=== PATIENT | male | born 1985 | race African-American/Black ===

== ENCOUNTER 2018-03-11 12:10 | Emergency (ER) | payer SELFPAY ==
[2018-03-11] MEDS ORDERED: ONDANSETRON HCL INJ/PF 4 MG/2 ML SDV IV ONE (13:12)
[2018-03-11] MEDS ORDERED: FAMOTIDINE INJ/PF 20 MG/2 ML SDV IV ONE (13:12)
[2018-03-11] MEDS ORDERED: RINGERS SOLUTION,LACTATED 1,000 ML IV ONE (13:12)
[2018-03-11] MEDS ORDERED: KETOROLAC TROMETHAMINE INJ/PF 30 MG/1 ML SDV IV ONE (13:15)
--- NOTE | 2018-03-11 13:15 | ER Document Report ---
ED General - General Chief Complaint: Nausea/Vomiting Stated Complaint: GENERAL WEAKNESS Time Seen by Provider: 03/11/18 12:51 Mode of Arrival: Medic Information source: Patient, Emergency Med Personnel, [facility] Records Notes: 33-year-old male with colitis, chronic anemia presents with complaint of nausea , vomiting and body aches that started 3 days prior to arrival. Patient states that he has had approximately 2 episodes of vomiting per day. He denies any blood. Patient has diffuse body aches. He has a intermittent nonproductive cough. He does have sick contacts at home with similar symptoms. Patient denies recent travel, recent antibiotic use. TRAVEL OUTSIDE OF THE [place] IN LAST 30 DAYS: No - HPI Onset: Other Onset/Duration: Gradual, Persistent Quality of pain: Achy Severity: Mild Associated symptoms: Chills, Nausea, Vomiting Exacerbated by: Food Relieved by: Denies Similar symptoms previously: Yes Recently seen / treated by doctor: Yes Past Medical History - General Information source: Patient, [facility] Records - Social History Smoking Status: Never Smoker Chew tobacco use (# tins/day): No Frequency of alcohol use: None Drug Abuse: None Lives with: Family Family History: Reviewed & Not Pertinent Patient has suicidal ideation: No Patient has homicidal ideation: No Renal/ Medical History: Denies: Hx Peritoneal Dialysis GI Medical History: Reports: Other - Colitis Review of Systems - Review of Systems Notes: REVIEW OF SYSTEMS: CONSTITUTIONAL : Denies fever, chills, or sweats. Denies recent illness. Denies weight loss, recent hospitalizations. EENT: Denies visual changes, eye pain. Denies sore throat, oral lesions, difficulty swallowing. CARDIOVASCULAR: Denies chest pain. Denies palpitations. Denies lower extremity edema. RESPIRATORY: Denies cough. Denies shortness of breath, wheezing. GASTROINTESTINAL: Denies abdominal pain or distention. Denies diarrhea. Denies blood in vomitus, stools, or per rectum. Denies black, tarry stools. Denies constipation. GENITOURINARY: Denies difficulty urinating, painful urination, frequency, blood in urine, testicular pain or penile discharge. MUSCULOSKELETAL: Denies neck pain or stiffness. Denies joint swelling. SKIN: Denies rash, lesions or sores. HEMATOLOGIC : Denies easy bruising or bleeding. LYMPHATIC: Denies swollen glands. NEUROLOGICAL: Denies confusion or altered mental status. Denies loss of consciousness. Denies dizziness or lightheadedness. Denies headache. Denies weakness or paralysis. Denies problems difficulty with ambulation, slurred speech. Denies sensory loss, numbness, or tingling. Denies seizures. PSYCHIATRIC: Denies anxiety or stress. Denies depression, suicidal ideation, or Physical Exam - Vital signs Vitals: Temp Pulse BP Pulse Ox 98.5 F 91 133/79 H 100 03/11/18 15:33 03/11/18 15:33 03/11/18 15:33 03/11/18 15:33 Interpretation: No: Febrile - Notes Notes: PHYSICAL EXAMINATION: GENERAL: Well-appearing, well-nourished and in no acute distress. HEAD: Atraumatic, normocephalic. EYES: Pupils equal round and reactive to light, extraocular movements intact, sclera anicteric, conjunctiva are normal. ENT: Nares patent, oropharynx clear without exudates. Moist mucous membranes. NECK: Normal range of motion, supple without lymphadenopathy LUNGS: Breath sounds clear to auscultation bilaterally and equal. No wheezes rales or rhonchi. HEART: Regular rate and rhythm without murmurs ABDOMEN: Soft, nontender, nondistended abdomen. No guarding, no rebound. No masses appreciated. Musculoskeletal: Normal range of motion, no pitting or edema. No cyanosis. NEUROLOGICAL: Cranial nerves grossly intact. Normal speech, normal gait. Normal sensory, motor exams PSYCH: Normal mood, normal affect. SKIN: Warm, Dry, normal turgor, no rashes or lesions noted. Course - Re-evaluation Re-evalutation: Laboratory 03/11/18 03/11/18 03/11/18 13:30 13:30 14:01 WBC 6.4 RBC 6.13 H Hgb 13.7 Hct 41.6 MCV 68 L MCH 22.4 L MCHC 33.0 RDW 24.1 H Plt Count 315 Seg Neutrophils % 75.7 Lymphocytes % 11.2 L Monocytes % 12.4 Eosinophils % 0.4 Basophils % 0.3 Absolute Neutrophils 4.8 Absolute Lymphocytes 0.7 Absolute Monocytes 0.8 Absolute Eosinophils 0.0 Absolute Basophils 0.0 Large Platelets PRESENT Platelet Comment ADEQUATE Hypochromasia 1+ Poikilocytosis SLIGHT Anisocytosis 3+ Microcytosis 2+ Ovalocytes SLIGHT Sodium 137.1 Potassium 4.6 Chloride 101 Carbon Dioxide 23 Anion Gap 13 BUN 13 Creatinine 0.95 Est GFR ( Amer) > 60 Est GFR (Non-Af Amer) > 60 Glucose 102 Calcium 10.2 Total Bilirubin 0.5 Direct Bilirubin 0.4 Neonat Total Bilirubin Not Reportable Neonat Direct Bilirubin Not Reportable Neonat Indirect Bili Not Reportable AST 32 ALT 48 Alkaline Phosphatase 179 H Total Protein 8.6 H Albumin 3.9 Lipase 39.7 Urine Color YELLOW Urine Appearance CLOUDY Urine pH 5.0 Ur Specific [place] 1.023 Urine Protein 100 H Urine Glucose (UA) NEGATIVE Urine Ketones NEGATIVE Urine Blood NEGATIVE Urine Nitrite NEGATIVE Urine Bilirubin SMALL H Urine Urobilinogen NEGATIVE Ur Leukocyte Esterase NEGATIVE Urine RBC 1-5 Urine WBC 10-20 Ur Squamous Epith Cells MODERATE Urine Bacteria 2+ Hyaline Casts 20-30 Granular Casts 1-5 WBC Casts 5-10 Urine Mucus 2+ Urine Ascorbic Acid NEGATIVE Presentation of an overall well-appearing patient in no acute distress with complaints of nausea, vomiting. This is consistent with likely viral gastroenteritis. Patient has no abdominal tenderness on exam and specifically no tenderness in the RLQ, LLQ, RUQ. Overall well hydrated on exam. Able to tolerate oral intake here in the emergency department. Low clinical suspicion for any acute life-threatening etiology based on exam and history including acute cholecystitis, SBO, appendicitis, nephrolithiasis, or pylonephritis, pancreatitis. CMP without evidence of acute hepatitis or significant dehydration. 03/11/18 15:11 Patient reevaluated and states he is feeling better. His nausea has resolved. He has been able to tolerate fluids. Patient was evaluated and treated as appropriate for the patient's presenting symptoms and complaint, with consideration of any critical or life threatening conditions that may be associated with their obtained history and exam as noted above. All results were discussed with patient. Patient provided the opportunity to ask questions, and express concerns. Patient was educated on treatments based on their presumed diagnosis as noted above. At this time we will discharge the patient with return precautions and follow-up recommendations. Verbal discharge instructions given a the bedside. Medication warnings reviewed. Patient is in agreement with this plan and has verbalized understanding of return precautions. After careful consideration I feel that that patient can be safely discharged from the emergency department, they were advised to followup with a primary care physician in 2-3 days. Dictation on this chart was performed using voice recognition software and may result in unintended grammatical, spelling, syntax or errors. 03/11/18 21:14 03/11/18 21:15 03/11/18 21:17 03/11/18 21:18 . - Vital Signs Vital signs: Temp Pulse Resp BP Pulse Ox 98.5 F 91 133/79 H 100 03/11/18 15:33 03/11/18 15:33 03/11/18 15:33 03/11/18 15:33 - Laboratory Result Diagrams: 03/11/18 13:30 03/11/18 13:30 Laboratory results interpreted by me: 03/11/18 03/11/18 03/11/18 13:30 13:30 14:01 RBC 6.13 H MCV 68 L MCH 22.4 L RDW 24.1 H Lymphocytes % 11.2 L Alkaline Phosphatase 179 H Total Protein 8.6 H Urine Protein 100 H Urine Bilirubin SMALL H Discharge - Discharge Clinical Impression: Myalgia, Viral illness, History of colitis Nausea & vomiting Qualifiers: Vomiting type: unspecified Vomiting Intractability: non-intractable Qualified Code(s): R11.2 - Nausea with vomiting, unspecified Condition: Good Disposition: HOME, SELF-CARE Instructions: Antinausea Medication ([facility]), Intravenous (IV) Fluids ([facility]), Viral Syndrome ([facility]), Vomiting ([facility]) Additional Instructions: Recommendations: Take medicine as prescribed for nausea and vomiting. Drink small amounts of fluid often, advance diet slowly. Return to the emergency room for worsening vomiting, inability to tolerate fluids, feeling faint, or concerns it or getting worse. Follow-up with your physician within the next two days. If you are unable to get inn to see your physician, return to the ER for evaulation. You have been seen in the Emergency Department (ED) today for nausea and vomiting. Your work up today has not shown a clear cause for your symptoms. You have been prescribed Zofran; please use as prescribed as needed for your nausea. Follow up with your doctor as soon as possible regarding today's emergent visit and your symptoms of nausea. Return to the Emergency Department (ED) if you develop abdominal pain, bloody vomiting, bloody diarrhea, if you are unable to tolerate fluids due to vomiting , or if you develop other symptoms that concern you. Prescriptions: Famotidine [Pepcid 40 mg Tablet] 40 mg PO DAILY #14 tablet Forms: Elevated Blood Pressure
[2018-03-11 14:04] LABS: ABSOLUTE LYMPHOCYTES (AUTO) 0.7 10^3/uL (0.5-4.7); ABSOLUTE MONOCYTES (AUTO) 0.8 10^3/uL (0.1-1.4); ABSOLUTE NEUT (AUTO) 4.8 10^3/uL (1.7-8.2); BASOPHILS % (AUTO) 0.3 % (0-2); EOSINOPHILS % (AUTO) 0.4 % (0-6); HEMATOCRIT 41.6 % (37.9-51.0); HEMOGLOBIN 13.7 g/dL (13.5-17.0); LYMPHOCYTES % (AUTO) 11.2 % (13-45); MEAN CORPUSCULAR HEMOGLOBIN 22.4 pg (27.0-33.4); MEAN CORPUSCULAR VOLUME 68 fl (80-97); MONOCYTES % (AUTO) 12.4 % (3-13); PLATELET COUNT 315 10^3/uL (150-450); RED BLOOD COUNT 6.13 10^6/uL (4.35-5.55); RED CELL DISTRIBUTION WIDTH 24.1 % (11.5-14.0); SEGMENTED NEUTROPHILS % (AUTO) 75.7 % (42-78); TOTAL CELLS COUNTED % (AUTO) 100 %; WHITE BLOOD COUNT 6.4 10^3/uL (4.0-10.5)
[2018-03-11 14:21] LABS: ALANINE AMINOTRANSFERASE 48 U/L (21-72); ALBUMIN 3.9 g/dL (3.5-5.0); ALKALINE PHOSPHATASE 179 U/L (38-126); ANION GAP 13 (5-19); ASPARTATE AMINO TRANSFERASE 32 U/L (17-59); BILIRUBIN,DIRECT 0.4 mg/dL (0.0-0.4); BILIRUBIN,TOTAL 0.5 mg/dL (0.2-1.3); BLOOD UREA NITROGEN 13 mg/dL (7-20); CALCIUM 10.2 mg/dL (8.4-10.2); CARBON DIOXIDE 23 mmol/L (22-30); CHLORIDE 101 mmol/L (98-107); GLUCOSE 102 mg/dL (75-110); LIPASE 39.7 U/L (23-300); POTASSIUM 4.6 mmol/L (3.6-5.0); SODIUM 137.1 mmol/L (137-145); TOTAL PROTEIN 8.6 g/dL (6.3-8.2)
[2018-03-11 14:22] LABS: ANISOCYTOSIS 3+
[2018-03-11 14:23] LABS: HYPOCHROMASIA 1+; OVALOCYTES SLIGHT; PLATELET COMMENT ADEQUATE; PLATELET LARGE PRESENT; POIKILOCYTOSIS SLIGHT
[2018-03-11 14:27] LABS: APPEARANCE,URINE CLOUDY; BILIRUBIN,URINE SMALL (NEGATIVE); GLUCOSE, URINE NEGATIVE (NEGATIVE); KETONES,URINE NEGATIVE (NEGATIVE); LEUKOCYTE ESTERASE,URINE NEGATIVE (NEGATIVE); NITRITE,URINE NEGATIVE (NEGATIVE); PROTEIN,URINE 100 mg/dL (NEGATIVE); URINE SPECIFIC GRAVITY 1.023; UROBILINOGEN,URINE NEGATIVE mg/dL (<2.0)
[2018-03-11] MEDS ORDERED: ONDANSETRON HCL INJ/PF 4 MG/2 ML SDV ONE (14:39)
[2018-03-11 14:43] LABS: ADD MANUAL MICROSCOPIC YES
[2018-03-11 14:44] LABS: COLOR,URINE YELLOW
[2018-03-11 14:54] LABS: BACTERIA,URINE 2+ /HPF
[2018-03-11 14:56] LABS: HYALINE CASTS, URINE 20-30 /LPF
[2018-03-11] MEDS ORDERED: ONDANSETRON ODT 4 MG TAB (6 TAB/ER DISP) PO PRN (15:16)
[2018-03-11 15:33] VITALS: BP 133/79
== END 2018-03-11 15:44 | disposition home or self-care (01) ==
LOC: ER 12:10
DX: B34.9 Viral infection, unspecified (principal); R11.2 Nausea with vomiting, unspecified; M79.10 Myalgia, unspecified site; R68.83 Chills (without fever); Z87.19 Personal history of other diseases of the digestive system; R05 Cough
CPT/HCPCS: 99284; 96361; 96374; 96375; 36415; 83690; 85025; 80053; 81001; J1885; J2405; J7120; S0028

== ENCOUNTER 2018-03-12 15:11 | Emergency (ER) | payer SELFPAY ==
[2018-03-12] MEDS ORDERED: NORMAL SALINE 1000 ML 1,000 ML IV ONE (15:36)
--- NOTE | 2018-03-12 15:38 | ER Document Report ---
ED Medical Screen (RME) - General Chief Complaint: Lower Abdominal Pain Stated Complaint: ABDOMINAL PAIN Time Seen by Provider: 03/12/18 15:33 Notes: 33 years old male with a history of ulcerative colitis, was on Humira, could not afford it and not been treated recently. Presents today with abdominal pain and bloody stools. General weakness. Appears cachectic, conjunctiva pale, carrying bloody stool with him. TRAVEL OUTSIDE OF THE [place] IN LAST 30 DAYS: No - Related Data Allergies/Adverse Reactions: No Known Allergies Allergy (Verified 03/12/18 15:12) Past Medical History Renal/ Medical History: Denies: Hx Peritoneal Dialysis Physical Exam - Vital signs Vitals: Temp Pulse Resp BP Pulse Ox 98.0 F 99 20 130/85 H 97 03/12/18 15:15 03/12/18 15:15 03/12/18 15:15 03/12/18 15:15 03/12/18 15:15 Course - Vital Signs Vital signs: Temp Pulse Resp BP Pulse Ox 98.0 F 99 20 130/85 H 97 03/12/18 15:15 03/12/18 15:15 03/12/18 15:15 03/12/18 15:15 03/12/18 15:15
[2018-03-12] MEDS ORDERED: METHYLPREDNISOLONE INJ 125 MG/2 ML SDV IV ONE (16:12)
[2018-03-12] MEDS ORDERED: FAMOTIDINE INJ/PF 20 MG/2 ML SDV IV ONE (16:13)
[2018-03-12] MEDS ORDERED: HYDROCORTISONE ACETATE 25 MG SUPP.RECT PR ONE (16:13)
--- NOTE | 2018-03-12 16:17 | RADIOLOGY REPORT (SQ) ---
EXAM DESCRIPTION: ACUTE ABDOMEN SERIES COMPLETED DATE/TIME: 03/12/2018 3:55 pm REASON FOR STUDY: Abdominal pain COMPARISON: None. NUMBER OF VIEWS: Three views. TECHNIQUE: Frontal chest, supine abdomen and upright abdomen radiographic images acquired. LIMITATIONS: None. FINDINGS: CHEST: Lungs clear of infiltrates. FREE AIR: None. No abnormal gas collections. BOWEL GAS PATTERN: Paucity of bowel gas. Stomach distended with fluid. CALCIFICATIONS: No suspicious calcifications. HARDWARE: None in the abdomen. SOFT TISSUES: No gross mass or suggestion of organomegaly. BONES: No acute fracture. No worrisome bone lesions. OTHER: No other significant finding. IMPRESSION: Paucity of bowel gas. Stomach distended with fluid. No acute pulmonary infiltrates. TECHNICAL DOCUMENTATION: JOB ID: [id number] [employer]- All Rights Reserved Reading location - IP/workstation name: [email or web address]
[2018-03-12] MEDS ORDERED: METOCLOPRAMIDE HCL INJ/PF 10 MG/2 ML SDV IV ONE (16:38)
[2018-03-12] MEDS ORDERED: FENTANYL CITRATE INJ/PF 100 MCG/2 ML AMPUL IV ONE (16:38)
--- NOTE | 2018-03-12 16:46 | ER Document Report ---
ED General - General Chief Complaint: Lower Abdominal Pain Stated Complaint: ABDOMINAL PAIN Time Seen by Provider: 03/12/18 15:33 Mode of Arrival: Ambulatory Information source: Patient, [facility] Records Notes: 33-year-old male with ulcerative colitis presents for the second time in 2 days with complaint of abdominal cramping, diarrhea and bright red blood per rectum. Patient was on Humira but after a loss of insurance has not been able to afford it. He currently has no primary care physician. He denies any fever, chills. He was seen by myself yesterday for nausea, vomiting which she says has improved. TRAVEL OUTSIDE OF THE [place] IN LAST 30 DAYS: No - HPI Onset: Other Onset/Duration: Gradual, Persistent Quality of pain: Cramping Severity: Mild Associated symptoms: Diarrhea, Nausea. denies: Chest pain, Fever, Vomiting Exacerbated by: Food Relieved by: Denies Similar symptoms previously: Yes Recently seen / treated by doctor: Yes - Related Data Allergies/Adverse Reactions: No Known Allergies Allergy (Verified 03/12/18 15:12) Past Medical History - General Information source: Patient, [facility] Records - Social History Smoking Status: Never Smoker Frequency of alcohol use: None Drug Abuse: None Lives with: Family Family History: Reviewed & Not Pertinent Patient has suicidal ideation: No Patient has homicidal ideation: No Renal/ Medical History: Denies: Hx Peritoneal Dialysis GI Medical History: Reports: Hx Ulcerative Colitis Review of Systems - Review of Systems Notes: REVIEW OF SYSTEMS: CONSTITUTIONAL : Denies fever, chills, or sweats. Denies recent illness. Denies weight loss, recent hospitalizations. EENT: Denies visual changes, eye pain. Denies sore throat, oral lesions, difficulty swallowing. CARDIOVASCULAR: Denies chest pain. Denies palpitations. Denies lower extremity edema. RESPIRATORY: Denies cough. Denies shortness of breath, wheezing. GASTROINTESTINAL: Denies abdominal distention. Denies blood in vomitus, or per rectum. Denies black, tarry stools. Denies constipation. GENITOURINARY: Denies difficulty urinating, painful urination, frequency, blood in urine, testicular pain or penile discharge. MUSCULOSKELETAL: Denies back or neck pain or stiffness. Denies joint pain or swelling. SKIN: Denies rash, lesions or sores. HEMATOLOGIC : Denies easy bruising or bleeding. LYMPHATIC: Denies swollen glands. NEUROLOGICAL: Denies confusion or altered mental status. Denies loss of consciousness. Denies dizziness or lightheadedness. Denies headache. Denies weakness or paralysis. Denies problems difficulty with ambulation, slurred speech. Denies sensory loss, numbness, or tingling. Denies seizures. PSYCHIATRIC: Denies anxiety or stress. Denies depression, suicidal ideation, or Physical Exam - Vital signs Vitals: Temp Pulse Resp BP Pulse Ox 98.0 F 99 20 130/85 H 97 03/12/18 15:15 03/12/18 15:15 03/12/18 15:15 03/12/18 15:15 03/12/18 15:15 Interpretation: Hypertensive - Notes Notes: PHYSICAL EXAMINATION: GENERAL: Thin, no acute distress. HEAD: Atraumatic, normocephalic. EYES: Pupils equal round and reactive to light, extraocular movements intact, sclera anicteric, conjunctiva are normal. ENT: Nares patent, oropharynx clear without exudates. Moist mucous membranes. NECK: Normal range of motion, supple without lymphadenopathy LUNGS: Breath sounds clear to auscultation bilaterally and equal. No wheezes rales or rhonchi. HEART: Regular rate and rhythm without murmurs ABDOMEN: Soft, nontender, nondistended abdomen. No guarding, no rebound. No masses appreciated. Rectal: No active bleeding, bright red blood noted. Musculoskeletal: Normal range of motion, no pitting or edema. No cyanosis. NEUROLOGICAL: Cranial nerves grossly intact. Normal speech, normal gait. Normal sensory, motor exams PSYCH: Normal mood, normal affect. SKIN: Warm, Dry, normal turgor, no rashes or lesions noted. Course - Re-evaluation Re-evalutation: Laboratory 03/12/18 03/12/18 03/12/18 16:18 16:18 16:36 WBC 7.9 RBC 6.65 H Hgb 14.7 Hct 45.3 MCV 68 L MCH 22.1 L MCHC 32.4 RDW 24.6 H Plt Count 345 Seg Neutrophils % 68.7 Lymphocytes % 14.7 Monocytes % 15.1 H Eosinophils % 1.1 Basophils % 0.4 Absolute Neutrophils 5.4 Absolute Lymphocytes 1.2 Absolute Monocytes 1.2 Absolute Eosinophils 0.1 Absolute Basophils 0.0 Platelet Comment ADEQUATE Anisocytosis 1+ Microcytosis 2+ Target Cells SLIGHT Ovalocytes SLIGHT Sodium 136.1 L Potassium 4.1 Chloride 95 L Carbon Dioxide 28 Anion Gap 13 BUN 15 Creatinine 0.96 Est GFR ( Amer) > 60 Est GFR (Non-Af Amer) > 60 Glucose 110 Calcium 10.3 H Total Bilirubin 0.4 Direct Bilirubin 0.3 Neonat Total Bilirubin Not Reportable Neonat Direct Bilirubin Not Reportable Neonat Indirect Bili Not Reportable AST 20 ALT 39 Alkaline Phosphatase 176 H Total Protein 8.7 H Albumin 4.0 Lipase 52.3 Stool Occult Blood POSITIVE 33-year-old male with ulcerative colitis presents with bloody stools that started today. Was seen yesterday for nausea and vomiting and abdominal cramping which he states has improved. Patient was not having bloody diarrhea yesterday. Patient has been off of his Humira since losing his insurance. He has not attempted to enroll in medication assistance program. He does not currently have a primary care physician. Reviewed Humira and similar medications on good Rx and the cheapest medication with a disc count is $215 for mesalamine. I did print out this coupon for the patient and I did prescribe this for him. Other alternatives are at least $1500 which the patient cannot currently afford. Unfortunately there are no affordable alternatives to his Humira that I can find at this time. I also placed a social work consult for the patient. He did receive Anusol rectally, steroids, mesalamine, Reglan, fentanyl. Vital signs stable upon arrival. Patient does not appear toxic although he is very thin. No focal abdominal tenderness. No active vomiting. He is not tachycardic, hypotensive. 03/12/18 16:52 Discussed medication assistance that is available for the patient. He states that he is aware of this but has not signed up at this time. Patient currently has no insurance, no primary care physician. 03/12/18 17:21 Patient reevaluated and states that his abdominal pain has improved. He was able to tolerate the suppository. He is asking to eat. CBC shows a hemoglobin of 14 which is better than it was yesterday. CMP shows no signal or evidence of dehydration. Stool occult is positive which is not surprising. I spoke to the patient at length regarding our options. Discussed that he should attempt to sign up for medication assistance. Patient given a turkey dinner for Thanksgiving which he tolerated. 03/12/18 17:37 Patient reevaluated. He is tolerating food. He denies nausea, vomiting, abdominal pain. Patient discharged home with a prescription for mesalamine, prednisone. Encouraged to return if bleeding persists or worsens. I will follow-up with social work regarding options for this patient. - Vital Signs Vital signs: Temp Pulse Resp BP Pulse Ox 98.4 F 80 16 123/71 98 03/12/18 19:35 03/12/18 19:35 03/12/18 19:35 03/12/18 19:35 03/12/18 19:35 - Laboratory Result Diagrams: 03/12/18 16:18 03/12/18 16:18 Laboratory results interpreted by me: 03/12/18 03/12/18 16:18 16:18 RBC 6.65 H MCV 68 L MCH 22.1 L RDW 24.6 H Monocytes % 15.1 H Sodium 136.1 L Chloride 95 L Calcium 10.3 H Alkaline Phosphatase 176 H Total Protein 8.7 H - Diagnostic Test Radiology reviewed: Image reviewed, Reports reviewed Discharge - Discharge Clinical Impression: History of colitis, Bright red blood per rectum, Abdominal cramping, Elevated blood pressure reading Condition: Good Disposition: HOME, SELF-CARE Instructions: Ulcerative Colitis ([facility]) Additional Instructions: Please go to [employer] and type in the medications you are supposed to be taking and apply for their assistance program. I have put in a social work consult for you and you should be hearing from our social services aide within the next week. Please return to the emergency department if your bleeding worsens. Follow up with your [id number] hours for further care or return to the ED IMMEDIATELY if symptoms worsen or you have any concerns. If you cannot afford to follow up with your primary care physician a list of low cost clinics have been provided at the end of your discharge papers as well. Most prescribed medications have multiple side effects. The safest thing to do is when filling your prescription speak to your pharmacist regarding possible interactions with your normal home medications and over the counter medications such as Ibuprofen, Tylenol, Benadryl. If you experience any symptoms that cause you discomfort or concern you should discontinue the medication immediately and return to the emergency room or call your primary care physician. Recommendations: It is recommended to followup with a primary care doctor within the next 2 days. If you do not have a primary care doctor or you are unable to get an apointment during that time, I left the number for some internal medicine physicians that are affiliated with this [facility]. Dr. Samina Figueredo [facility] [address], [place] [phone] [address] [place] Address: [address] [place] [address] Dr Manzano Address: [address] [place] [address] , [place] [address] Prescriptions: Mesalamine 1,600 mg PO TID #90 tablet. Prednisone 10 mg PO ASDIR 12 Days #1 tab.ds.[id number] Forms: Elevated Blood Pressure Referrals: THU JORDAN MD [HONORARY] - Follow up in 3-5 days SHELLY SPARKS MD [ACTIVE STAFF] - Follow up in 3-5 days
[2018-03-12 16:53] LABS: ABSOLUTE EOSINOPHILS # (AUTO) 0.1 10^3/uL (0.0-0.6); ABSOLUTE LYMPHOCYTES (AUTO) 1.2 10^3/uL (0.5-4.7); ABSOLUTE MONOCYTES (AUTO) 1.2 10^3/uL (0.1-1.4); ABSOLUTE NEUT (AUTO) 5.4 10^3/uL (1.7-8.2); BASOPHILS % (AUTO) 0.4 % (0-2); EOSINOPHILS % (AUTO) 1.1 % (0-6); HEMATOCRIT 45.3 % (37.9-51.0); HEMOGLOBIN 14.7 g/dL (13.5-17.0); LYMPHOCYTES % (AUTO) 14.7 % (13-45); MEAN CORPUSCULAR HEMOGLOBIN 22.1 pg (27.0-33.4); MEAN CORPUSCULAR HGB CONC 32.4 g/dL (32.0-36.0); MEAN CORPUSCULAR VOLUME 68 fl (80-97); MONOCYTES % (AUTO) 15.1 % (3-13); PLATELET COUNT 345 10^3/uL (150-450); RED BLOOD COUNT 6.65 10^6/uL (4.35-5.55); RED CELL DISTRIBUTION WIDTH 24.6 % (11.5-14.0); SEGMENTED NEUTROPHILS % (AUTO) 68.7 % (42-78); TOTAL CELLS COUNTED % (AUTO) 100 %; WHITE BLOOD COUNT 7.9 10^3/uL (4.0-10.5)
[2018-03-12 16:56] LABS: ALANINE AMINOTRANSFERASE 39 U/L (21-72); ALKALINE PHOSPHATASE 176 U/L (38-126); ANION GAP 13 (5-19); ASPARTATE AMINO TRANSFERASE 20 U/L (17-59); BILIRUBIN,DIRECT 0.3 mg/dL (0.0-0.4); BILIRUBIN,TOTAL 0.4 mg/dL (0.2-1.3); BLOOD UREA NITROGEN 15 mg/dL (7-20); CALCIUM 10.3 mg/dL (8.4-10.2); CARBON DIOXIDE 28 mmol/L (22-30); CHLORIDE 95 mmol/L (98-107); GLUCOSE 110 mg/dL (75-110); LIPASE 52.3 U/L (23-300); POTASSIUM 4.1 mmol/L (3.6-5.0); SODIUM 136.1 mmol/L (137-145); TOTAL PROTEIN 8.7 g/dL (6.3-8.2)
[2018-03-12] MEDS ORDERED: MESALAMINE 400 MG CAPSULE.DR PO ONE (17:03)
[2018-03-12 17:16] LABS: ANISOCYTOSIS 1+; OVALOCYTES SLIGHT; PLATELET COMMENT ADEQUATE; TARGET CELLS SLIGHT
[2018-03-12] MEDS ORDERED: RINGERS SOLUTION,LACTATED 1,000 ML IV ONE (17:23)
[2018-03-12] MEDS ORDERED: HYDROCODONE/ACETAMINOPHEN 5-325 MG (6 TAB/ER DISP) PO PRN (17:30)
[2018-03-12 20:01] VITALS: BP 123/71
== END 2018-03-12 19:47 | disposition home or self-care (01) ==
LOC: ER 15:11
DX: K51.911 Ulcerative colitis, unspecified with rectal bleeding (principal); T39.4X6A Underdosing of antirheumatics, not elsewhere classified, initial encounter; Z91.120 Patient's intentional underdosing of medication regimen due to financial hardship; Z91.14 Patient's other noncompliance with medication regimen
CPT/HCPCS: 99284; 96361; 96374; 96375; 36415; 83690; 85025; 82272; 80053; 74022; J3490; J3010; J2930; J2765; J7030; J7120; S0028